=== PATIENT | female | born 1950 | race Caucasian/White ===

== ENCOUNTER → 2016-06-06 | Outpatient (CLI) | payer MEDICARE ==
[~2016-06-06] MED LIST: ULTRAM 50MG TAB50 MG PO; ZOFRAN ODT4 MG PO
== END ==
LOC: MC.RAD 08:26
DX: Z12.31 Encounter for screening mammogram for malignant neoplasm of breast (principal)

== ENCOUNTER 2016-08-18 21:06 | Emergency (ER) | payer MEDICARE ==
[~2016-08-18] VITALS: Ht 162.6 cm; Wt 84.1 kg
[2016-08-18 21:11] VITALS: TEMP 97.4
[2016-08-18] MEDS ORDERED: ULTRAM 50MG TAB50 MG PO (21:26)
[2016-08-18 22:29] LABS: BASO % 0.3 % (0.0-2.0); EOS % 0.3 % (0-4.0); GRAN # 6.2 (1.4-6.5); GRAN % 81.3 % (42.2-75.2); HEMATOCRIT 39.5 % (37.0-47.0); HEMOGLOBIN 13.7 g/dl (12.5-16.0); LYMPH % 13.6 % (20.0-51.0); MEAN CELL VOLUME 86 fl (80.0-100.0); MEAN CORPUSCULAR HEMOGLOBIN 30 pg (27.0-31.0); MEAN CORPUSCULAR HGB CONC 35 g/dl (33.0-37.0); MEAN PLATELET VOLUME 9.5 fl (7.4-10.4); MONO # 0.3 (0.1-0.6); MONO % 4.2 % (1.7-9.3); PLATELET COUNT 169 K/mm3 (130-400); RED BLOOD COUNT 4.61 M/mm3 (4.10-5.30); REDCELL DISTRIBUTION WIDTH-CV 14.2 % (11.5-14.5); WHITE BLOOD COUNT 7.6 K/mm3 (4.8-10.8)
[2016-08-18 22:34] LABS: PH 7 (5-8); URINE APPEARANCE Clear; URINE BILIRUBIN Negative (NEGATIVE); URINE BLOOD Negative (NEGATIVE); URINE COLOR Straw; URINE GLUCOSE Negative (NEGATIVE); URINE KETONE Negative (NEGATIVE); URINE UROBILINOGEN Negative (NEGATIVE)
[2016-08-18] MEDS ORDERED: ZOFRAN ODT4 MG PO (22:35)
[2016-08-18 22:37] LABS: SQUAMOUS EPITHELIAL 0-2 /hpf; URINE RBC 0-2 /hpf; URINE WBC 0-2 /hpf
[2016-08-18 22:43] LABS: ALANINE AMINOTRANSFERASE 35 U/L (9-52); ALBUMIN 4.2 gm/dL (3.5-5.0); ALKALINE PHOSPHATASE 126 U/L (50-136); ANION GAP 12 mmol/L (7-16); BLOOD UREA NITROGEN 13 mg/dL (7-17); CALCIUM 9.2 mg/dL (8.4-10.2); CARBON DIOXIDE 23 mmol/L (22-30); CHLORIDE 106 mmol/L (98-107); CREATININE, serum 0.69 mg/dL (0.52-1.25); GLUCOSE 108 mg/dL (74-106); LIPASE 68 U/L (23-300); SODIUM 140 mmol/L (137-145); TOTAL PROTEIN 7.2 gm/dL (6.4-8.2)
[2016-08-18 22:53] LABS: C-REACTIVE PROTEIN < 0.5 mg/dL (0.0-0.9); TROPONIN-I < 0.012 ng/mL (0.000-0.034)
[2016-08-18 23:33] VITALS: BP 138/80; PULSE 84
== END 2016-08-18 23:35 | disposition home or self-care (01) ==
LOC: COL.ER 21:06
PROVIDERS: Emergency Medicine
DX: R11.2 Nausea with vomiting, unspecified (principal); R10.816 Epigastric abdominal tenderness

== ENCOUNTER 2017-02-25 10:57 | Outpatient (CLI) | payer MEDICARE ==
[~2017-02-25] VITALS: Ht 162.7 cm; Wt 89.5 kg
[2017-02-25] VITALS (7 sets, daily range): BP systolic 140–164; BP diastolic 82–124; PULSE 55–75; TEMP 97.6
[2017-02-25] MEDS ORDERED: MOBIC15 MG PO (11:52)
[2017-02-25] MEDS ORDERED: CELEBREX 200MG200 MG PO (11:53)
== END 2017-02-25 16:30 | disposition home or self-care (01) ==
LOC: COL.RAD 10:57 → COL.CAR 12:45 → COL.RAD 16:30
DX: S22.070A Wedge compression fracture of T9-T10 vertebra, initial encounter for closed fracture (principal)
CPT/HCPCS: C1713; J2250; J3010; J7120

== ENCOUNTER → 2017-10-08 | Outpatient (CLI) | payer MEDICARE ==
[~2017-10-08] MED LIST changes: +CELEBREX 200MG200 MG PO; +MOBIC15 MG PO
== END ==
LOC: MC.RAD 14:28
DX: Z12.31 Encounter for screening mammogram for malignant neoplasm of breast (principal)

== ENCOUNTER → 2018-07-23 | Outpatient (CLI) | payer MEDICARE | LOC: MHCPAIN 10:09 | DX: G89.29 Other chronic pain (principal); M47.817 Spondylosis without myelopathy or radiculopathy, lumbosacral region; M54.16 Radiculopathy, lumbar region; M53.3 Sacrococcygeal disorders, not elsewhere classified | CPT/HCPCS: G0463 ==

== ENCOUNTER → 2018-07-24 | Outpatient (CLI) | payer MEDICARE | LOC: MHCPAIN 10:10 | DX: M47.817 Spondylosis without myelopathy or radiculopathy, lumbosacral region (principal); M54.16 Radiculopathy, lumbar region | CPT/HCPCS: J1100; Q9967 ==

== ENCOUNTER → 2018-08-05 | Outpatient (CLI) | payer MEDICARE | LOC: MHCPAIN 10:58 | DX: G89.29 Other chronic pain (principal); M47.817 Spondylosis without myelopathy or radiculopathy, lumbosacral region; M54.16 Radiculopathy, lumbar region; M53.3 Sacrococcygeal disorders, not elsewhere classified | CPT/HCPCS: G0463 ==

== ENCOUNTER → 2018-08-11 | Outpatient (CLI) | payer MEDICARE | LOC: MHCPAIN 11:16 | DX: M47.817 Spondylosis without myelopathy or radiculopathy, lumbosacral region (principal); M54.16 Radiculopathy, lumbar region | CPT/HCPCS: J1100; Q9967 ==

== ENCOUNTER → 2018-08-26 | Outpatient (CLI) | payer MEDICARE | LOC: MHCPAIN 12:52 | DX: G89.29 Other chronic pain (principal); M47.817 Spondylosis without myelopathy or radiculopathy, lumbosacral region; M54.16 Radiculopathy, lumbar region; M53.3 Sacrococcygeal disorders, not elsewhere classified | CPT/HCPCS: G0463 ==

== ENCOUNTER → 2018-11-18 | Outpatient (CLI) | payer MEDICARE | LOC: MHCPAIN 11:02 | DX: G89.29 Other chronic pain (principal); M47.817 Spondylosis without myelopathy or radiculopathy, lumbosacral region; M54.16 Radiculopathy, lumbar region; M53.3 Sacrococcygeal disorders, not elsewhere classified | CPT/HCPCS: G0463 ==

== ENCOUNTER → 2018-11-25 | Outpatient (CLI) | payer MEDICARE | LOC: MC.RAD 09:52 | DX: Z12.31 Encounter for screening mammogram for malignant neoplasm of breast (principal) ==

== ENCOUNTER 2019-01-30 22:55 | Inpatient (IN) | payer MEDICARE ==
[~2019-01-30] VITALS: Ht 162.6 cm; Wt 86.5 kg
[2019-01-30 23:18] LABS: HEMATOCRIT 44.7 % (37.0-47.0); HEMOGLOBIN 14.7 g/dl (12.5-16.0); MEAN CELL VOLUME 92 fl (80.0-100.0); MEAN CORPUSCULAR HEMOGLOBIN 30 pg (27.0-31.0); MEAN CORPUSCULAR HGB CONC 33 g/dl (33.0-37.0); MEAN PLATELET VOLUME 9.8 fl (7.4-10.4); PLATELET COUNT 131 K/mm3 (130-400); RED BLOOD COUNT 4.87 M/mm3 (4.10-5.30); REDCELL DISTRIBUTION WIDTH-CV 13.7 % (11.5-14.5)
[2019-01-31] VITALS (817 sets, daily range): BP systolic 75–130; BP diastolic 52–69; PULSE 76–102; TEMP 97.1–98; O2SAT 69–99
[2019-01-31 00:10] LABS: INR 1.1 (0.8-3.0); PROTHROMBIN TIME 12.7 SECONDS (9.7-12.8)
[2019-01-31 00:13] LABS: COLLECTION METHOD CLEAN CATCH
[2019-01-31 00:14] LABS: ALBUMIN 3.9 gm/dL (3.5-5.0); BILIRUBIN,TOTAL 1.1 mg/dL (0.0-1.0); CALCIUM 8.8 mg/dL (8.4-10.2); CREATININE, serum 1.1 (0.52-1.25); TOTAL PROTEIN 6.7 gm/dL (6.4-8.2)
[2019-01-31 00:19] LABS: BAND 22 % (0-10); EOSINOPHIL 1 % (0-4); LYMPHOCYTE 14 % (20.0-51.0); NEUTROPHILS 61 % (42.0-75.2); PLATELET ESTIMATE NORMAL (NORMAL)
[2019-01-31 00:21] LABS: MUCOUS Present /lpf; PH 5 (5-8); URINE APPEARANCE Cloudy; URINE BACTERIA Rare /hpf; URINE BILIRUBIN Negative (NEGATIVE); URINE BLOOD 3+ (NEGATIVE); URINE COLOR Yellow; URINE GLUCOSE Negative (NEGATIVE); URINE KETONE Negative (NEGATIVE); URINE LEUKOCYTE ESTERASE 2+ (NEGATIVE); URINE NITRATE Positive (NEGATIVE); URINE PROTEIN(semi-quant) Negative (NEGATIVE); URINE RBC >50 /hpf; URINE UROBILINOGEN Negative (NEGATIVE)
--- NOTE | 2019-01-31 02:08 | NUR ---
Patient arrived on unit via wheelchair accompanied by ER nurse. Patient stood with assistance of RN and cane to get into unit bed. Patient oriented to room, unit policies, and POC. Encouraged to ask questions. Will continue to educate and monitor.
[2019-01-31 08:13] LABS: MEAN CELL VOLUME 91 fl (80.0-100.0); MEAN CORPUSCULAR HGB CONC 33 g/dl (33.0-37.0); MEAN PLATELET VOLUME 9.5 fl (7.4-10.4); REDCELL DISTRIBUTION WIDTH-CV 13.9 % (11.5-14.5)
[2019-01-31 08:16] LABS: HEMATOCRIT 34.6 % (37.0-47.0); MEAN CORPUSCULAR HEMOGLOBIN 30 pg (27.0-31.0); PLATELET COUNT 115 K/mm3 (130-400)
[2019-01-31 08:17] LABS: CALCIUM 7.6 mg/dL (8.4-10.2); CREATININE, serum 1.1 (0.52-1.25); POTASSIUM 3.6 mmol/L (3.4-5.0)
[2019-01-31 08:19] LABS: HEMOGLOBIN 11.5 g/dl (12.5-16.0)
[2019-01-31 08:49] LABS: BAND 39 % (0-10); LYMPHOCYTE 2 % (20.0-51.0); NEUTROPHILS 57 % (42.0-75.2)
[2019-01-31 08:50] LABS: PLATELET ESTIMATE NORMAL (NORMAL)
[2019-01-31 08:58] LABS: PATHOLOGY DIFF REVIEW OK
[2019-01-31 09:11] LABS: TSH w REFLEX 1.67 uIU/mL (0.465-4.680)
--- NOTE | 2019-01-31 11:08 | NUR ---
URINE HAS LONG LASTING ODOR, PATIENT HAS CONSTANT DRIBBLE INTO DEPENDS
--- NOTE | 2019-01-31 11:52 | NUR ---
Michael offered a prayer and support with patient.
--- NOTE | 2019-01-31 13:34 | NUR ---
SW met with the patient to discuss discharge plan. The patient lives in [place] with her Grzegorz ([facility]#[phone]). She reports independence with ADLs and has a cane. The patient's PCP is Dr. Jean-Pierre Zuniga and she receives her medications at [facility]. She reports no difficulties obtaining her meds. The patient does not have advanced directives in EMR, but she states that she believes she has them completed and at home. She states she thinks she designated hers sons: Kee & Johnna Garner. SW then addressed the patient's thoughts of suicide. The patient reports that her health has been down lately and that she has been falling at least once a week. She states that her thoughts have been due to this decline. She states that she is thinking about talking to Dr. Zuniga about starting on an anti-depressant. SW to continue to follow to ensure a safe discharge.
--- NOTE | 2019-01-31 19:05 | NUR ---
Pt report received from Hipolito. Pt resting in bed. Staff assisted pt to lay on right side due to pain recorded at a 5/10 in the hip/ knee area. Pt reports at home putting ice on pain with Tylenol with improvement.
[2019-02-01] VITALS (360 sets, daily range): BP systolic 109–162; BP diastolic 65–96; PULSE 75–94; TEMP 97.7–98.4; O2SAT 81–96
--- NOTE | 2019-02-01 07:30 | NUR ---
Report provided to Hipolito MUNOZ. Pt resting in recliner at bedside, call light and personal belongings with in reach.
[2019-02-01 08:48] LABS: HEMOGLOBIN 11.4 g/dl (12.5-16.0); MEAN CELL VOLUME 92 fl (80.0-100.0); MEAN CORPUSCULAR HEMOGLOBIN 30 pg (27.0-31.0); MEAN CORPUSCULAR HGB CONC 33 g/dl (33.0-37.0); PLATELET COUNT 90 K/mm3 (130-400); RED BLOOD COUNT 3.76 M/mm3 (4.10-5.30); REDCELL DISTRIBUTION WIDTH-CV 14.6 % (11.5-14.5)
[2019-02-01 08:49] LABS: HEMATOCRIT 34.7 % (37.0-47.0)
[2019-02-01 09:00] LABS: BILIRUBIN,TOTAL 0.9 mg/dL (0.0-1.0); CALCIUM 7.6 mg/dL (8.4-10.2); CREATININE, serum 0.82 (0.52-1.25); MAGNESIUM 1.8 mg/dL (1.6-2.3); POTASSIUM 3.4 mmol/L (3.4-5.0); TOTAL PROTEIN 5.7 gm/dL (6.4-8.2)
[2019-02-01 12:02] LABS: BAND 18 % (0-10); LYMPHOCYTE 4 % (20.0-51.0); NEUTROPHILS 77 % (42.0-75.2); PLATELET ESTIMATE DECREASED (NORMAL)
--- NOTE | 2019-02-01 15:27 | NUR ---
Patient taken to third floor 308 TAMMY Moe recieved report
--- NOTE | 2019-02-01 16:00 | NUR ---
Pt arrived into room 308 at this time. She is drowsy, but oriented and answers questions appropriately. Pt reports pain to lower back and bilateral legs 5/10, reports Morphine made her nauseated. Discussed with Dr. Brown new orders received. IVF infusing into LAC without complications. Breathing even and unlabored on RA. Pt denies SOB, fine crackles to bilateral lower lungs. Intermittent cough present. HR regular. Hypoactive bowel sounds, pt denies nausea at this time. BLE edema present. No needs at this time. Call light wiin reach.
--- NOTE | 2019-02-01 19:08 | NUR ---
Pt placed on oxygen d/t low sat's.
[2019-02-02] VITALS (7 sets, daily range): BP systolic 146–182; BP diastolic 71–93; PULSE 74–102; TEMP 97.6–98.4
--- NOTE | 2019-02-02 00:52 | NUR ---
PT NAUSEATED WITH EMESIS. ZOFRAN INEFFECTIVE. ORDER OBTAINED FOR PHENERGAN. PT NOW RESTING QUIETLY.
--- NOTE | 2019-02-02 06:02 | NUR ---
PT c/o CHEST PAIN/PRESSURE AT APPROX. 0530. PT DENIED ANY DISCOMFORT TO HER ARMS, JAW OR BACK. AT THAT TIME, PT'S BLOOD PRESSURE WAS 182/93. EKG WAS DONE WITH READOUT STATING NORMAL SINUS RHYTHM, NO INDICATION OF INFARCT. HOSPITALIST GRINDER OPERATOR SURFACE TOOL WAS NOTIFIED. ORDERS RECEIVED.
[2019-02-02 06:17] LABS: HEMOGLOBIN 11.5 g/dl (12.5-16.0); MEAN CELL VOLUME 93 fl (80.0-100.0); MEAN CORPUSCULAR HEMOGLOBIN 30 pg (27.0-31.0); MEAN CORPUSCULAR HGB CONC 32 g/dl (33.0-37.0); MEAN PLATELET VOLUME 9.9 fl (7.4-10.4); PLATELET COUNT 110 K/mm3 (130-400); RED BLOOD COUNT 3.89 M/mm3 (4.10-5.30); REDCELL DISTRIBUTION WIDTH-CV 14.2 % (11.5-14.5)
[2019-02-02 06:21] LABS: CALCIUM 8.4 mg/dL (8.4-10.2); CREATININE, serum 0.73 (0.52-1.25); MAGNESIUM 1.8 mg/dL (1.6-2.3); POTASSIUM 3.7 mmol/L (3.4-5.0)
[2019-02-02 06:29] LABS: HEMATOCRIT 36.3 % (37.0-47.0)
[2019-02-02 06:40] LABS: TROPONIN-I 0.063 ng/mL (0.000-0.035)
[2019-02-02 06:45] LABS: BAND 15 % (0-10); EOSINOPHIL 1 % (0-4); LYMPHOCYTE 10 % (20.0-51.0); NEUTROPHILS 73 % (42.0-75.2); PLATELET ESTIMATE DECREASED (NORMAL)
[2019-02-02 07:35] LABS: CHOLESTEROL RISK RATIO 4.8
--- NOTE | 2019-02-02 08:09 | NUR ---
Pt assessment complete. Pt is laying in bed upon entry. She is sleeping upon entry, but arouses to voice. She reports a "heaviness" to her chest. Pt agreed to take Morphine to see if this would help. SOB with exertion. Pt does not currently have any N/V. LUE elevated on pillows and wrap removed from arm d/t swelling. IVF infusing into LAC without complications. No further needs, call light within reach.
--- NOTE | 2019-02-02 19:15 | NUR ---
Pt had uneventful day. She denied any further chest pain. BP did improve. Pt still on 2L O2 via NC. Continues to have frequent urination. No needs at this time. Call light within reach.
--- NOTE | 2019-02-02 22:47 | NUR ---
Assist pt up to BSC. Urinating often since Lasix was given this evening. Assist back to bed.
[2019-02-03] VITALS (7 sets, daily range): BP systolic 119–182; BP diastolic 64–100; PULSE 84–107; TEMP 97.9–99.4
[2019-02-03 06:41] LABS: MEAN CELL VOLUME 89 fl (80.0-100.0); MEAN CORPUSCULAR HEMOGLOBIN 30 pg (27.0-31.0); MEAN CORPUSCULAR HGB CONC 34 g/dl (33.0-37.0); PLATELET COUNT 115 K/mm3 (130-400); RED BLOOD COUNT 3.65 M/mm3 (4.10-5.30); REDCELL DISTRIBUTION WIDTH-CV 13.7 % (11.5-14.5)
[2019-02-03 06:58] LABS: HEMATOCRIT 32.5 % (37.0-47.0)
[2019-02-03 07:04] LABS: BILIRUBIN,TOTAL 1.1 mg/dL (0.0-1.0); CALCIUM 8.2 mg/dL (8.4-10.2); CREATININE, serum 0.76 (0.52-1.25); POTASSIUM 3.1 mmol/L (3.4-5.0); TOTAL PROTEIN 5.7 gm/dL (6.4-8.2)
--- NOTE | 2019-02-03 07:10 | NUR ---
Patient report received, assisted patient to [facility], transferred well. Used quad cane, transferred well. Has been sitting on the side of the bed. Is alert and oriented and calls for any needs. Oxygen is in place, patient does not feel short of breath at this time and tolerated the transfer without shortness of breath. Urine collected in hat and is noted to be a clear yellow color. Does complain of pain to her right low back, more so to buttock area. Does have lidocane patch is ordered. Does state she is feeling much better today. Fresh ice water provided, personal items and call light are within reach.
[2019-02-03 07:50] LABS: BAND 1 % (0-10); LYMPHOCYTE 12 % (20.0-51.0); NEUTROPHILS 85 % (42.0-75.2); PLATELET ESTIMATE DECREASED (NORMAL)
[2019-02-03 07:51] LABS: TOXIC GRANULATION PRESENT
--- NOTE | 2019-02-03 10:58 | NUR ---
NAOMI met with the patient and the patient's to review discharge plan. The patient reports that she plans to return home with her upon discharge. SW then discussed PT's recommendation of outpatient PT. The patient reports that she would be interested in some outpatient PT and states that she would like to make the appointment herself. NAOMI informed Ayla ARENAS, for a script for outpatient PT. No other additional needs at this time, but SW to continue to follow.
--- NOTE | 2019-02-03 19:24 | NUR ---
REPORT GIVEN TO ONCOMING SHIFT. VERBALIZES NO NEEDS AT THIS TIME. CALL LIGHT AND PERSONAL ITEMS ARE WITHIN REACH.
[2019-02-04 04:24] VITALS: BP 132/77; PULSE 88; TEMP 98.4
[2019-02-04 07:26] LABS: HEMOGLOBIN 11.4 g/dl (12.5-16.0); MEAN CELL VOLUME 90 fl (80.0-100.0); MEAN CORPUSCULAR HEMOGLOBIN 30 pg (27.0-31.0); MEAN CORPUSCULAR HGB CONC 33 g/dl (33.0-37.0); MEAN PLATELET VOLUME 9.6 fl (7.4-10.4); PLATELET COUNT 137 K/mm3 (130-400); RED BLOOD COUNT 3.83 M/mm3 (4.10-5.30); REDCELL DISTRIBUTION WIDTH-CV 13.7 % (11.5-14.5)
[2019-02-04 07:29] LABS: HEMATOCRIT 34.4 % (37.0-47.0)
[2019-02-04 07:39] LABS: CALCIUM 8.3 mg/dL (8.4-10.2); CREATININE, serum 0.75 (0.52-1.25); POTASSIUM 3.3 mmol/L (3.4-5.0)
[2019-02-04 07:44] VITALS: BP 154/64; PULSE 95; TEMP 98.6
[2019-02-04] MEDS ORDERED: ASPIRIN E.C. 8181 MG PO (07:44)
[2019-02-04] MEDS ORDERED: OMNICEF 300MG300 MG PO (07:46)
[2019-02-04 09:28] LABS: BAND 7 % (0-10); EOSINOPHIL 1 % (0-4); LYMPHOCYTE 26 % (20.0-51.0); NEUTROPHILS 62 % (42.0-75.2)
[2019-02-04 09:29] LABS: PLATELET ESTIMATE NORMAL (NORMAL)
[2019-02-04] MEDS ORDERED: DEMADEX10 MG PO (09:57)
[2019-02-04] MEDS ORDERED: K-DUR 10 MEQ T10 MEQ PO (09:58)
[2019-02-04 10:50] VITALS: BP 147/99; PULSE 93; TEMP 98.6
--- NOTE | 2019-02-04 10:54 | NUR ---
The patient is to discharge back home with her today, 02/04. NAOMI followed up with the patient about the outpatient PT. The patient reports that she would now prefer for NAOMI to make the appointment and would want to do it at [facility]. NAOMI contacted Nadira at [facility]. Nadira requested the patient orders and demographics. NAOMI faxed those to Nadira. Nadira reports that they like to contact and make the appointment with the patient. NAOMI informed the patient and she is in agreeance to this. NAOMI presented and explained the IM form to the patient. The patient verbalized understanding, signed, and she declined a copy. No additional needs at this time.
--- NOTE | 2019-02-04 12:15 | NUR ---
DISCHARGE PAPERWORK WENT OVERWITH PAPERWORK, SIGNATURES OBTIANED. NO QUESTIONS VOICED. IV AND TELE REMOVED WITHOUT ISSUE. PORIVDED EDUCATION TO PT ABOUT NEW MEDS AND THAT PRESCRIPTIONS HAVE BEEN SENT OVER TO THE PHARMACY AND THAT WE MADE NEXT PT APPOINTMENT FOR FOLLOW UP.
== END 2019-02-04 12:20 | disposition home or self-care (01) | DRG 871 ==
LOC: COL.ER 22:55 → ICU 01-31 00:41 → MEDICAL 01-31 00:41
PROVIDERS: Emergency Medicine; Internal Medicine; Physician Assistant; ADMIT Student in an Organized Health Care Education/Training Program
DX: A41.51 Sepsis due to Escherichia coli [E. coli] (principal); J96.01 Acute respiratory failure with hypoxia; N39.0 Urinary tract infection, site not specified; E87.2 Acidosis; J90 Pleural effusion, not elsewhere classified; R74.0 Nonspecific elevation of levels of transaminase and lactic acid dehydrogenase [LDH]; I10 Essential (primary) hypertension; E87.6 Hypokalemia; D70.9 Neutropenia, unspecified; M54.9 Dorsalgia, unspecified; R53.81 Other malaise; D69.6 Thrombocytopenia, unspecified
CPT/HCPCS: 99223-AI; 99232-AI; 99233-AI; 99239; A4216; A9284; J0360; J0692; J0696; J1650; J1940; J2270; J2405; J2550; J7030; J7120

== ENCOUNTER → 2019-02-18 | Outpatient (CLI) | payer MEDICARE ==
[~2019-02-18] VITALS: Ht 162.6 cm; Wt 85.1 kg
[~2019-02-18] MED LIST changes: +ASPIRIN E.C. 8181 MG PO; +DEMADEX10 MG PO; +K-DUR 10 MEQ T10 MEQ PO; +OMNICEF 300MG300 MG PO; +ZESTRIL 5MG5 MG PO
[2019-02-18 06:26] VITALS: BP 136/87; PULSE 76
[2019-02-18 07:59] VITALS: BP 110/70; PULSE 89
[2019-02-18 08:00] VITALS: BP 122/74; PULSE 82
[2019-02-18 08:01] VITALS: BP 118/70; PULSE 81
[2019-02-18 08:02] VITALS: BP 113/62; PULSE 82
== END ==
LOC: COL.CARD 06:17
DX: I10 Essential (primary) hypertension (principal)
CPT/HCPCS: A9500; J2785

== ENCOUNTER → 2019-03-04 | Outpatient (CLI) | payer MEDICARE | LOC: COL.RAD 07:01 | DX: M50.30 Other cervical disc degeneration, unspecified cervical region (principal) | CPT/HCPCS: A9585 ==

== ENCOUNTER → 2019-05-06 | Outpatient (CLI) | payer MEDICARE | LOC: MHCPAIN 11:01 | DX: M54.16 Radiculopathy, lumbar region (principal); M47.27 Other spondylosis with radiculopathy, lumbosacral region | CPT/HCPCS: G0463 ==

== ENCOUNTER → 2019-05-14 | Outpatient (CLI) | payer MEDICARE | LOC: MHCPAIN 14:07 | DX: M47.27 Other spondylosis with radiculopathy, lumbosacral region (principal); M54.5 Low back pain | CPT/HCPCS: J1100; Q9967 ==

== ENCOUNTER 2019-12-11 10:37 | Outpatient (CLI) | payer MEDICARE ==
[~2019-12-11] VITALS: Ht 162.7 cm; Wt 87.9 kg
[2019-12-11] VITALS (9 sets, daily range): BP systolic 132–177; BP diastolic 64–96; PULSE 47–67; TEMP 98
[2019-12-11] MEDS ORDERED: ALEVE 220MG220 MG PO (12:28)
[2019-12-11] MEDS ORDERED: TYLENOL 325MG325 MG PO (12:29)
[2019-12-11] MEDS ORDERED: CALCIUM 600MG+D1 TAB PO (12:29)
--- NOTE | 2019-12-11 12:45 | NUR ---
Pt to procedure,report to Lamine Clarke.
--- NOTE | 2019-12-11 13:01 | NUR ---
SEE MERGE DOCUMENTATION FOR MEDICATION ADMINISTRATION TIMES AND INTRA/POST PROCEDURE SEDATION ASSESSMENTS.
--- NOTE | 2019-12-11 15:45 | NUR ---
Report given to Lamine Hernandez.pt still in rocedure at this time.
--- NOTE | 2019-12-11 17:32 | NUR ---
Dr. Chandler rounds at this time. Tells patient she may leave in 20 min time.
== END 2019-12-11 18:18 | disposition home or self-care (01) ==
LOC: COL.CAR 10:37
DX: S22.080A Wedge compression fracture of T11-T12 vertebra, initial encounter for closed fracture (principal); E87.6 Hypokalemia; Z87.440 Personal history of urinary (tract) infections; D72.818 Other decreased white blood cell count; Z90.49 Acquired absence of other specified parts of digestive tract; Z79.82 Long term (current) use of aspirin
CPT/HCPCS: C1751; J2250; J3010; J7120

== ENCOUNTER → 2020-01-04 | Outpatient (CLI) | payer MEDICARE ==
[~2020-01-04] MED LIST changes: +ALEVE 220MG220 MG PO; +CALCIUM 600MG+D1 TAB PO; +TYLENOL 325MG325 MG PO
== END ==
LOC: MC.RAD 12-01 13:15
DX: Z12.31 Encounter for screening mammogram for malignant neoplasm of breast (principal)